=== PATIENT | male | born 1990 | race African-American/Black ===

== ENCOUNTER → 2024-06-15 11:37 | Outpatient (REF) | payer OTHER, SELFPAY ==
[2024-06-15 15:41] LABS: Varicella Zoster IgG (VZV) Positive
[2024-06-17 07:10] LABS: Quantiferon Mitogen minus NIL 9.96 IU/mL; Quantiferon NIL 0.04 IU/mL; Quantiferon TB Gold Plus Negative (Negative)
== END ==
LOC: REG 11:37
PROVIDERS: ATTENDING PHYSICIAN Nurse Practitioner Family
DX: Z23 Encounter for immunization (principal)
CPT/HCPCS: 36415; 86480; 86787